=== PATIENT | female | born 1965 | race Caucasian/White ===

== ENCOUNTER 2019-08-28 08:58 | Emergency (ER) | payer SELFPAY ==
[~2019-08-28] VITALS: Ht 167.6 cm; Wt 84.4 kg
[2019-08-28 09:04] VITALS: Ht 167.6 cm; Wt 84.4 kg
[2019-08-28 10:37] VITALS: BP 136/69
== END 2019-08-28 10:37 | disposition home or self-care (01) ==
LOC: ED 08:58
DX: R03.0 Elevated blood-pressure reading, without diagnosis of hypertension (principal); T63.311A Toxic effect of venom of black widow spider, accidental (unintentional), initial encounter; Z98.890 Other specified postprocedural states; Y92.89 Other specified places as the place of occurrence of the external cause